=== PATIENT | male | born 1965 | race Caucasian/White ===

== ENCOUNTER → 2022-01-05 | Outpatient (CLI) | payer OTHER ==
[2022-01-05 14:30] VITALS: BP 127/82; PULSE 86; RESP 18; TEMP 98.2
--- NOTE | 2022-01-05 15:28 | P.PAINPG ---
Objective - Vital Signs Vital signs: Vital Signs Temp 98.2 F 01/05/22 14:24 Pulse 86 01/05/22 14:24 Resp 18 01/05/22 14:24 BP 127/82 01/05/22 14:24 Pulse Ox 96 01/05/22 14:24 FiO2 PQRS Measure Charge Sheet Mode of Arrival: Ambulatory Comment: HISTORY OF PRESENT ILLNESS: 56 yr old male as a referral from Dr Berger presents today with severe and chronic cervical pain w daily HAs secondary to DDD, neuforaminal stenoses, spondylosis, spinal stenosis and facet arthropathy for evaluation. Pt states his neck pain level is currently at 7/10 in intensity, constant, localized in the mid to lower aspect of his cervical spine with radiation of sharp pain towards the BL shoulders, L>R, with limited R rotational ROM due to pain. Pain is provoked with hyperextension as well. Pain is alleviated with PT integrated w massage in October 2021, home stretching regimen as tolerated, heat, medications (medrol dose pack without relief, Ibuprofen), repositioning and rest PMH: OA, HTN PSH: Cholecystectomy SH: No tobacco use, occasional ETOH use, No illicit drug use. Works as a welder boilermaker. FH: Non contributory All: NKDA Meds: See list REVIEW OF ORGAN SYSTEMS: CONSTITUTIONAL: No fevers or chills. No recent weight loss. NEUROLOGICAL: + numbness and tingling along the distal extremities. No seizure disorders or headaches. MUSCULOSKELETAL: + pain PSYCHIATRIC: Denies current depression or suicidal thoughts. Physical Examinations : Constitutional : Cooperative , not in acute distress . Neurologic : Cranial nerve II to XII intact. No focal neurological deficits. Psychiatric : alert & oriented x 3. Matching mood & appropriate affect. Judgment & insight intact. Musculoskeletal : Cervical Spine Motor strength in the deltoid and biceps: Normal right side. Normal Left side Motor strength biceps and the wrist extensors: Normal right side . Normal left side Motor strength in the triceps muscle: Normal right side. Normal left side Deep tendon reflexes: Normal at the biceps. Normal at Brachioradialis. Normal at triceps Vertebral body tenderness to deep palp ation over C6 Cervical facet loading test Spurling test: positive bilaterally Neck distraction test: positive bilaterally Yoan sign: positive bilaterally Lumbar spine Motor strength lower extremities ,thigh and legs 5/5 Right side , 5/5 Left side Deep tendon reflexes : Normal Knee Jerk. Normal Ankle Jerk Vertebral body tenderness over Lumbar facet Loading Test: positive Right / positive Left Range of motion of the lumbar spine Flexion 30 degrees, extension 10 degrees Straight Leg Raise test: Left/ Right positive at degree Cody test: positive right / positive left. Severe tenderness over the Sacroiliac joint on the Right / Left sides Gaenslen test: positive bilaterally Seated flexion test: positive bilaterally. Sacral spine : Severe tenderness over the Sacroiliac joint: right side / left side Range of motion: Flexion of the lumbar spine <60 degrees Range of motion: Extension of the lumbar spine <20 degrees Gaenslen's Test positive Valeriano's Test positive Cody test: positive right side / left side Thigh Thrust Test Sacral Thrust Test Imaging: MRI without contrast of the cervical spine from 11/10/21 reviewed Assessment/ Plan : Cervical DDD Recommendation of LUIS F C6-C7. May need a series of injections, up to 3 within a 6 mo period, for optimal pain relief. Risks, benefits of procedure discussed and patient verbalized understanding. Denies aspirin or anti- coagulant use or medical history of diabetes. Protocol for discontinuation/ continuation of medications yan procedure discussed. All questions answered. I have spent greater than 30 minutes on patient care today. Dr Alonzo was available by phone for the evaluation of this patient. The time was used to review the medical records including relevant urine studies and Prescription history (MAPs), review of the available imaging, evaluation and examination of the patient, coordination of care with the medical staff and if applicable referring physicians, as well as creation of the medical record - Pain Location Neck Non-Pharmacological Interventions: Heat, Home Exercise, Massage, Physical Therapy, Position/Reposition, Stretching Pharmacological Interventions: PRN Medication PQRS Narrative: Blood Pressure 127/82 Pain Intensity [Neck] 7 Scale Used Numeric (1 - 10) Hx Alcohol Use (MH) Yes: OCCASSIONAL Controlled Substance Measures - Controlled Substance Measures Is patient prescribed a controlled substance at discharge?: No
== END ==
LOC: PNWHC3 13:40
PROVIDERS: ATTEND Specialist
DX: M50.30 Other cervical disc degeneration, unspecified cervical region (principal); M48.02 Spinal stenosis, cervical region; M19.90 Unspecified osteoarthritis, unspecified site; I10 Essential (primary) hypertension
CPT/HCPCS: 99202

== ENCOUNTER → 2022-02-15 | Day surgery (SDC) | payer OTHER ==
[~2022-02-15] MED LIST: LACTATED RINGERS 1,000 ML IV SCH
[2022-02-15 10:49] VITALS: BP 137/87; PULSE 83; RESP 16; TEMP 97.8
== END ==
LOC: ORPAIN 10:18
DX: Z53.8 Procedure and treatment not carried out for other reasons (principal); M54.2 Cervicalgia; M54.12 Radiculopathy, cervical region; M48.02 Spinal stenosis, cervical region; M50.30 Other cervical disc degeneration, unspecified cervical region

== ENCOUNTER 2022-08-10 07:09 | Inpatient (IN) | payer OTHER ==
[2022-08-03 17:53] VITALS: BMI 38.7
[~2022-08-10 07:09] MED LIST changes: -LACTATED RINGERS 1,000 ML IV SCH; +ceFAZolin 1,000 MG in SODIUM CHLORIDE 0.9% IRRIGATIO 1,000 ML IRRIGATION PRN; +ceFAZolin 3 GM in SODIUM CHLORIDE 0.9% 100 ML IVPB PRN
[2022-08-10] MEDS ORDERED: ONDANSETRON 4 MG/2 ML VIAL IVP ONE (07:43)
[2022-08-10] MEDS ORDERED: DEXAMETHASONE SOD PHOSPHATE 4 MG/ML 1 ML VIAL IV ONE (07:43)
[2022-08-10] MEDS ORDERED: LIDOCAINE 1% (10MG/ML) FOR IV START INTRADERMA PRN (07:43)
[2022-08-10] MEDS ORDERED: HYDROmorphone 0.5 MG/0.5 ML SYRINGE IVP PRN ×2 (07:43→11:32)
[2022-08-10] MEDS: LACTATED RINGERS 1,000 ML IV SCH ×4 (08:10→08:30)
[2022-08-10] MEDS ORDERED: fentaNYL (PF) 50 MCG/ML 2 ML AMP ONE (08:25)
[2022-08-10] MEDS ORDERED: PHENYLEPHRINE-0.9% NACL SYG 1,000 MCG/10 ML SYRINGE ONE (08:25)
[2022-08-10] MEDS ORDERED: LIDOCAINE 2% INJ 20 MG/ML (2 ML VIAL) ONE (08:25)
[2022-08-10] MEDS ORDERED: NEOSTIGMINE 1 MG/ML 10 ML VIAL ONE (08:25)
[2022-08-10] MEDS ORDERED: DEXAMETHASONE SOD PHOS (MDV) 100 MG/10 ML VIAL ONE (08:25)
[2022-08-10] MEDS ORDERED: ePHEDrine 50 MG/ML 1 ML VIAL ONE (08:25)
[2022-08-10] MEDS ORDERED: GLYCOPYRROLATE 0.2 MG/ML 2 ML VIAL ONE (08:25)
[2022-08-10] MEDS ORDERED: ROCURONIUM 10 MG/ML (5 ML VIAL) IV ONE (08:25)
[2022-08-10] MEDS ORDERED: ONDANSETRON 4 MG/2 ML VIAL ONE (08:25)
[2022-08-10] MEDS ORDERED: SUCCINYLCHOLINE CHLORIDE 200 MG/10 ML VIAL IV ONE (08:25)
[2022-08-10] MEDS ORDERED: PROPOFOL 10 MG/ML 20 ML VIAL IV ONE (08:25)
[2022-08-10] MEDS ORDERED: MIDAZOLAM 2 MG/2 ML VIAL ONE (08:25)
[2022-08-10] MEDS ORDERED: LACTATED RINGERS 1,000 ML IV ONE ×2 (08:30→10:11)
[2022-08-10] MEDS ORDERED: BUPIVACAIN-EPI 0.25%-1:200,000 30 ML VIAL SQ ONE ×2 (09:08→09:12)
[2022-08-10] MEDS ORDERED: THROMBIN (BOVINE) 5,000 UNIT VIAL MISCELLANE ONE (09:12)
[2022-08-10] MEDS ORDERED: GELATIN SPONGE,ABSORB (LARGE) 1 EACH SPONGE MISCELLANE ONE (09:12)
--- NOTE | 2022-08-10 10:34 | XR ---
EXAMINATION TYPE: XR cervical spine 1V DATE OF EXAM: 08/10/2022 COMPARISON: NONE HISTORY: Needle placement TECHNIQUE: One crosstable lateral view submitted. FINDINGS: There is surgical instrument anterior to the mid cervical spine. ET tube suggested. There i s soft tissue emphysema in the prevertebral space which likely is postsurgical IMPRESSION: See above
[2022-08-10] MEDS ORDERED: MAGNESIUM HYDROXIDE 2,400 MG/10 ML CUP PO PRN (11:32)
[2022-08-10] MEDS ORDERED: BENZOCAINE/MENTHOL LOZENG 1 EACH LOZENGE MUCOUS MEM PRN (11:32)
[2022-08-10] MEDS ORDERED: ONDANSETRON 4 MG/2 ML VIAL IVP PRN (11:32)
--- NOTE | 2022-08-10 11:38 | XR ---
EXAMINATION TYPE: XR cervical spine 1V DATE OF EXAM: 08/10/2022 COMPARISON: NONE HISTORY: Hardware placement TECHNIQUE: Single cross table lateral view FINDINGS: Postsurgical change appears in near-anatomic alignment. Endotracheal tube noted. Soft tissu e overlap limits assessment of the lower surgical region IMPRESSION: Postoperative changes
--- NOTE | 2022-08-10 11:39 | P.OP ---
Date of Procedure: 08/10/22 Preoperative Diagnosis: Severe cervical stenosis C3 4 C4 5 C5 6 C6 7, herniated nucleus pulposis C3 4 C4 5 C5 6 C6 7, upper extremity radiculopathy, myelopathy, Postoperative Diagnosis: Same Anesthesia: GETA Pathology: none sent Condition: stable Disposition: PACU Description of Procedure: BRIEF OPERATIVE NOTE Preoperative Diagnosis:Severe cervical stenosis C3 4 C4 5 C5 6 C6 7, herniated nucleus pulposis C3 4 C4 5 C5 6 C6 7, upper extremity radiculopathy, myelopathy, Postoperative Diagnosis:Severe cervical stenosis C3 4 C4 5 C5 6 C6 7, herniated nucleus pulposis C3 4 C4 5 C5 6 C6 7, upper extremity radiculopathy, myelopathy, Procedure: Anterior cervical decompression with discectomy and fusion C3 4 C4 5 C5 6 C6 7 Placement of interbody graftC3 4 C4 5 C5 6 C6 7 Application of anterior cervical plate C3 4 5 6 and 7 Surgeon: Dr. Berger Carrot Buncher: Zacarias Dickinson is present throughout the entire the case pers istence during positioning, dissection, exposure, visualization, and all crucial elements of the case as well as closure. Anesthesia: General anesthesia per Dr. Betancourt Estimated blood loss: Approximately 75 mL Complications: None apparent Components implanted: K2M [place] anterior cervical plate system with screws and Vikos interbody allograft bone graft and 1 mL of DBX bone putty Disposition: To recovery room in good stable condition. OPERATIVE INDICATIONS The patient has had long-standing issues in their neck and upper extremities. He's been having worsening symptoms at his neck and his upper extremities despite aggressive conservative care. He's been developing some changes in his function in his left upper extremity pain. His imaging shows evidence of severe cervical stenosis with disc herniations 4 C4 5 C5 6 and C6 7 which correlates well with his extremity symptoms. The patient has been through conservative treatment. We discussed various treatment options including surgery, and the patient wishes to proceed with surgery We discussed the risk, patient's alternatives and benefits of surgery including but not limited to, risk of bleeding risk of infection, risk of need for further surgery, risk of decreased, loss of motion, muscle function, malunion nonunion, hardware failure, nerve damage, paralysis, heart attack, and . OPERATIVE SUMMARY After discussing all the risks, patient alternatives and benefits at length, the patient elected to proceed with surgical intervention, signed informed consent, and presented for their procedure. The patient was seen and examined in the preoperative holding area and the surgical site was marked. The patient was given antibiotics and brought to the operating room. The patient was positioned on the operating room table in a supine position being careful to pad any bony prominences and pressure points. The patient was sedated and intubated by anesthesia in standard fashion. Once the airway and C- spine were stabilized the patient's arms were padded and tucked at her side, with her shoulders gently taped. The head was placed in a donut pad with the neck in good neutral alignment and position. We were careful to maintain the patient's cervical spine and good neutral alignment and position throughout. The patient was prepped and draped in a normal standard fashion. An appropriate timeout and keystone protocol performed. We were able to proceed with the surgery. The local wound area was infiltrated with local anesthetic. An incision was made longitudinally approximately 5 cm over the appropriate le vels on the right. Dissection was taken down subcutaneously to the level of the platysma which was split in line with its fibers. Dissection was taken with a carotid approach, with the trachea and esophagus medial and the carotid sheath laterally. We dissected down to the anterior surface of the vertebral bodies. Intraoperative x-ray was taken which showed a marker at the appropriate level at C4 5. With the appropriate level positively confirmed, we were able to proceed with discectomy at the appropriate levels at C3 to C7. All of the operative levels were exposed appropriately at C3 4 C4 5 C5 6 C6 7. The patient had all their twitches back, and there was no evidence of recurrent laryngeal issue. The wound was copiously irrigated and suctioned dry as had been done periodically throughout the case. At the appropriate level/levels, I started C3 [address] down C4 5 C5 6 and then C6 7 I established an annulotomy with an 11 blade scalpel. A discectomy was performed with a combination of pituitary rongeurs, curettes, a high-speed bur, and Kerrison rongeurs. The posterior longitudinal ligament was taken down as were any posterior osteophytes. This gave good central and bilateral foraminal decompression. There is no evidence of any dural tear or leak. The endplates were prepared with a high-speed bur. With the endplates in good parallel position, I was able to size for the appropriate size interbody graft. The wound was irrigated and suctioned dry the graft was prepared and malleted into position. It had good alignment and position with the anterior surface flush with the anterior surface of the vertebral bodies. This was done similarly the appropriate levels first at C3 4 and then C4 5 C5 6 and C6 7. With the grafts intact, I was able to measure and contour and appropriate sized plate. The plate was positioned at the midline over the appropriate levels from C3 to C7. Screw holes were established with a hand drill and drill guide. Screws were placed in good alignment and position with excellent bony purchase. They were seated under the locking device. The construct was checked and found to be stable. Intraoperative x-ray was taken which showed good alignment and position of the implants at the appropriate levels. There was no evidence of any dural tear or leak. Good hemostasis was maintained. The wound was copiously irrigated and suctioned dry as had been done periodically throughout the case. The platysma was closed with absorbable suture. The subcutaneous tissue was closed. The subcuticular tissue was closed with absorbable suture. The wound was cleaned and dried and dressed appropriately. A soft cervical collar was placed appropriately. The patient was woken up by anesthesia, extubated, transferred back gently to their hospital bed and brought to the recovery room in good stable condition. The patient will be admitted to the hospital for appropriate postoperative care, medical management and monitoring. We will continue to follow them closely about the postoperative course.
[2022-08-10] MEDS: CYCLOBENZAPRINE 10 MG TAB PO PRN ×2 (13:09→23:01)
[2022-08-10] MEDS: HYDROmorphone 1 MG/ML 1 ML SYRINGE IVP PRN ×4 (13:09→23:01)
[2022-08-10] MEDS: ceFAZolin 3 GM in SODIUM CHLORIDE 0.9% 100 ML IVPB SCH ×2 (16:06→23:00)
[2022-08-10] MEDS: HYDROcodone/APAP 5-325MG 1 EACH TAB PO PRN (19:13)
[2022-08-10] MEDS: SODIUM CHLORIDE 0.9% 1,000 ML IV SCH (20:37)
[2022-08-11] MEDS: HYDROcodone/APAP 5-325MG 1 EACH TAB PO PRN ×3 (00:18→10:42)
[2022-08-11] MEDS: SODIUM CHLORIDE 0.9% 1,000 ML IV SCH (00:19)
[2022-08-11] MEDS: HYDROmorphone 1 MG/ML 1 ML SYRINGE IVP PRN ×2 (03:16→08:02)
[2022-08-11 07:24] VITALS: BP 146/90; PULSE 107; RESP 16; TEMP 98.3
[2022-08-11] MEDS ORDERED: PANTOPRAZOLE 40 MG TABLET PO SCH (07:30)
[2022-08-11] MEDS: CYCLOBENZAPRINE 10 MG TAB PO PRN (08:01)
[2022-08-11] MEDS ORDERED: amLODIPine 10 MG TAB PO SCH (09:00)
[2022-08-11] MEDS ORDERED: lisinopriL 20 MG TAB PO SCH (09:00)
[2022-08-11] MEDS ORDERED: TRIAMTERENE-HCTZ 37.5-25MG 1 EACH CAP PO SCH (09:00)
[2022-08-11] MEDS ORDERED: SENNOSIDES-DOCUSATE SODIUM 1 EACH TAB PO SCH (09:00)
[2022-08-11] MEDS ORDERED: MULTIVITAMINS, THERA 1 EACH TAB PO SCH (09:00)
--- NOTE | 2022-08-11 09:05 | P.DS ---
Providers Date of admission: 08/10/22 07:09 Attending physician: Fatimah Berger Primary care physician: [facility] Course: The patient presented on the day of admission as per their operative note. He underwent an injury cervical decompression with discectomy and fusion at C3 4 C4 5 C5 6 and C6 7 for his severe cervical stenosis with myelopathy upper extremity radiculopathy. He feels he is doing well postoperatively. He is tolerating a soft diet. He has been up and urinating on his own. His pain is controlled and he is not having any trouble breathing. His voice feels scratchy and a little bit sore but he is managing adequately. Physical Exam The incision site is clean dry and intact. There is no erythema no drainage. There is no purulence no evidence of infection. There is no significant swelling. His neck is supple. Abdomen soft and nontender. Chest has good excursion with deep inspiration and expiration. The patient has active and passive range of motion intact at the upper and lower extremities. There is no acute change in neurologic status. He has sustained strength in his bilateral upper extremities morning Hospital Course Postoperative day #1 status post anterior cervical decompression with discectomy and fusion C3 through 4 C4 5 C5 6 C6 7 for his severe cervical stenosis with disc degeneration disc herniation upper extremity radiculopathy and myelopathy. Patient appears to be making good progress postoperatively. The patient has been making good progress postoperatively. They have completed the prophylactic antibiotics without any signs or symptoms of infection. The patient has been able to advance their diet, and is tolerating diet adequately. The pain was initially controlled with IV medications and is now controlled appropriately with oral medications. The patient has been able to increase their mobilization. The patient has progressed appropriately. I think they are in good stable condition for discharge today. They will be sent home with appropriate prescriptions. I answered their questions to the best of my ability in a language that they can understand and they are agreeable with the plan. They will follow up as directed in approximately 2 weeks or sooner if he is having problems. There is a shortage of [place] 5 mg and so we will prescribe the 10 mg and have him break them in half for his dosing. Patient Condition at Discharge: Good Plan - Discharge Summary Discharge Rx Participant: No New Discharge Prescriptions: New HYDROcodone/APAP 10-325MG [Hampton 10-325] 1 tab PO Q4HR PRN 7 Days #21 tab PRN Reason: Pain No Action Ibuprofen [Motrin] 800 mg PO Q6H PRN PRN Reason: Pain amLODIPine [Norvasc] 10 mg PO DAILY Triamterene-Hctz 37.5-25Mg [Dyazide 37.5-25 Capsule] 1 tab PO DAILY Omeprazole 20 mg PO DAILY lisinopriL 40 mg PO DAILY Multivitamin [Multivitamins Adult Gummies] 2 tab PO DAILY Discharge Medication List Ibuprofen [Motrin] 800 mg PO Q6H PRN 02/14/22 [History] Multivitamin [Multivitamins Adult Gummies] 2 tab PO DAILY 02/15/22 [History] Omeprazole 20 mg PO DAILY 02/15/22 [History] Triamterene-Hctz 37.5-25Mg [Dyazide 37.5-25 Capsule] 1 tab PO DAILY 02/15/22 [History] amLODIPine [Norvasc] 10 mg PO DAILY 02/15/22 [History] lisinopriL 40 mg PO DAILY 02/15/22 [History] HYDROcodone/APAP 10-325MG [[place] 10-325] 1 tab PO Q4HR PRN 7 Days #21 tab 08/11/22 [Rx] Follow up Appointment(s)/Referral(s): Fatimah Berger DO [Doctor of Osteopathic Medicine] - 2 Weeks Activity/Diet/Wound Care/Special Instructions: Keep site clean. May shower with waterproof Tegaderm intact. Do not soak in a tub. After 72 hours postoperatively, patient May remove dressing and then may shower with area uncovered. Leave glue intact and allow it to fray off on its own. May ambulate as tolerated. Avoid heavy or rigorous activity. No repetitive bending twisting or lifting. No overhead work. Discharge Disposition: HOME SELF-CARE
== END 2022-08-11 10:45 | disposition home or self-care (01) | DRG 472 ==
LOC: 2ORMAIN 07:09 → 4SSUR 12:43 → EDSTATUS 13:00
PROVIDERS: ADMIT Orthopaedic Surgery Orthopaedic Surgery of the Spine; ATTEND Orthopaedic Surgery Orthopaedic Surgery of the Spine
PROC: 0RG2070 Fusion of 2 or more Cervical Vertebral Joints with Autologous Tissue Substitute, Anterior Approach, Anterior Column, Open Approach (ICD-10-PCS; 2022-08-10)
PROC: 0RG20A0 Fusion of 2 or more Cervical Vertebral Joints with Interbody Fusion Device, Anterior Approach, Anterior Column, Open Approach (ICD-10-PCS; 2022-08-10)
PROC: 0RB30ZZ Excision of Cervical Vertebral Disc, Open Approach (ICD-10-PCS; principal; 2022-08-10 08:30)
DX: M50.121 Cervical disc disorder at C4-C5 level with radiculopathy (principal); M50.021 Cervical disc disorder at C4-C5 level with myelopathy; M48.02 Spinal stenosis, cervical region
CPT/HCPCS: 72020; 86850; 86900; 86901

== ENCOUNTER → 2022-10-05 | Outpatient (CLI) | payer OTHER ==
--- NOTE | 2022-10-05 13:26 | MR ---
EXAMINATION TYPE: MR cervical spine wo/w con DATE OF EXAM: 10/05/2022 COMPARISON: Cervical spine radiograph 08/10/2022 HISTORY: Left arm weakness TECHNIQUE: Multiplanar, multisequence images of the cervical spine were acquired without contrast and with 12 mL intravenous Gadavist gadolinium contrast. Diffusion weighted imaging was performed. Cervical segments are intact. Postsurgical changes from anterior cervical fusion involving C3 through C7 with disc fusion cages. Hardware appears intact with appropriate alignment. There is normal align ment of the cervical spine. Cervical spinal cord is of normal signal. Craniovertebral junction rela tionships are within normal limits. There is edema demonstrated within the posterior neck soft tissue s most pronounced at C3-C6 and is likely postsurgical. No enhancing lesions identified. C2-C3: Eccentric left foraminal zone disc bulge with uncovertebral joint hypertrophy resulting in mod erate to severe left neural foraminal stenosis. The right neural foramen is patent. C3-C4: Posterior disc osteophyte complex with mild effacement of anterior thecal sac. Uncovertebral j oint hypertrophy resulting in moderate bilateral neural foraminal stenosis. C4-C5: Posterior disc osteophyte complex with minimal effacement of anterior thecal sac. Uncovertebra l joint hypertrophy resulting in severe left and moderate right bilateral neural foraminal stenosis. C5-C6: Posterior disc osteophyte complex with mild effacement of anterior thecal sac. Uncovertebral j oint hypertrophy resulting in moderate bilateral neural foraminal stenosis. C6-C7: Eccentric right disc osteophyte complex with mild effacement of anterior thecal sac. Uncoverte bral joint hypertrophy resulting in moderate bilateral neural foraminal stenosis. C7-T1: No disc bulge/herniation or protrusion. No Canal stenosis. Foramina are patent bilaterally. IMPRESSION: 1. Postsurgical changes from anterior cervical fusion from C3 through C7. Hardware appears intact. 2. Mild to moderate multilevel degenerative disc disease and uncovertebral joint hypertrophy as desc ribed above.
== END | disposition home or self-care (01) ==
LOC: RADMRIMAIN 11:21
PROVIDERS: ATTEND Orthopaedic Surgery Orthopaedic Surgery of the Spine
DX: M43.12 Spondylolisthesis, cervical region (principal); M50.31 Other cervical disc degeneration, high cervical region; M47.812 Spondylosis without myelopathy or radiculopathy, cervical region; Z98.1 Arthrodesis status
CPT/HCPCS: 72156; A9585